=== PATIENT | female | born 1965 ===

== ENCOUNTER 2024-04-22 09:06 | Outpatient (CLI) | payer BC, SELFPAY ==
--- NOTE | ~2024-04-22 | US_ITS ---
US soft tissue head and neck DATE: 04/22/2024 09:33 INDICATION: Soft tissue mass of neck, supraclavicular area TECHNIQUE: Real-time and color flow imaging COMPARISON: None FINDINGS: The area of clinical complaint of mass in the left supraclavicular area there is a 5.5 x 5.8 x 5.1 mm lymph node. No discrete described mass noted otherwise. If further evaluation is indicated, consider CT chest examination. IMPRESSION: Benign-appearing supraclavicular lymph node Reviewed, dictated and finalized at [facility]. Reviewed, dictated and finalized at [facility]. [facility]
== END 2024-04-22 09:07 | disposition home or self-care (01) ==
LOC: MICIMG 09:10
PROVIDERS: PCP Internal Medicine; Visit Provider Internal Medicine
DX: M79.89 Other specified soft tissue disorders (principal)
CPT/HCPCS: 76536